=== PATIENT | male | born 1985 | race Caucasian/White ===

== ENCOUNTER → 2017-09-02 | Outpatient (CLI) | payer BC ==
[~2017-09-02] MED LIST: NAPR-1169 PO; NEOM1SUS21 OP; PRED10TA PO
[2017-09-02 17:36] LABS: BASO % 1.2 %; BASO ABS # 0.06 K/uL (0-0.2); EOS % 5.5 %; EOS ABS # 0.28 K/uL (0-0.5); HEMATOCRIT 43.4 % (42-52); HEMOGLOBIN 15.1 g/dL (14.0-18.0); LYMPH % 31.9 %; LYMPH ABS # 1.62 K/uL (1.2-3.4); MEAN CORPUSCULAR HEMOGLOBIN 28.9 pg (25-34); MEAN CORPUSCULAR HGB CONC 34.8 g/dl (32-36); MEAN PLATELET VOLUME 10.1 fL (7.4-10.4); MONO % 13.6 %; MONO ABS # 0.69 K/uL (0.11-0.59); NEUT % 47.8 %; NEUT ABS # 2.43 K/uL (1.4-6.5); PLATELET COUNT 206 K/uL (130-400); RED CELL DISTRIBUTION WIDTH CV 14.1 % (11.5-14.5); RED CELL DISTRIBUTION WIDTH SD 42.9 fL (36.4-46.3); WHITE BLOOD COUNT 5.08 K/uL (4.8-10.8)
[2017-09-02 18:12] LABS: BLOOD UREA NITROGEN 11 mg/dl (7-18); CALCIUM 9.4 mg/dl (8.5-10.1); CARBON DIOXIDE 27 mmol/L (21-32); CREATININE 0.92 mg/dl (0.60-1.40); GLUCOSE 89 mg/dl (70-99); POTASSIUM 3.9 mmol/L (3.5-5.1); SODIUM 138 mmol/L (136-145)
[2017-09-02 18:23] LABS: CHOLESTEROL 140 mg/dl (0-200); LDL CHOLESTEROL CALCULATED 64 mg/dl
== END | disposition home or self-care (01) ==
LOC: C.LABPVFM 13:44
PROVIDERS: ATTEND Nurse Practitioner Family
DX: R07.9 Chest pain, unspecified (principal)

== ENCOUNTER → 2017-09-09 | Outpatient (CLI) | payer BC ==
--- NOTE | 2017-09-09 11:19 | DIAGNOSTIC IMAGING REPORT ---
CHEST 2 VIEWS ROUTINE HISTORY: 31 years-old Male CHEST PAIN acute atypical chest pain COMPARISON: Chest radiograph 05/28/2007, CT chest 02/02/2011 TECHNIQUE: PA and lateral views of the chest FINDINGS: The patient is slightly rotated to the right. There is no pneumothorax, pleural effusion, focal airspace consolidation or overt pulmonary edema. Bones of the chest appear grossly intact. Mild focal levoscoliosis of the upper thoracic spine centered at the T4-T5 level. There is a 4 mm nodular ovoid density projecting over the lower left chest suggesting nipple shadow. IMPRESSION: No acute process. The above report was generated using voice recognition software. It may contain grammatical, syntax or spelling errors. Electronically signed by: Craig Diggs M.D. 09/09/2017 11:18 AM Dictated Date/Time: 09/09/2017 11:16 AM
== END | disposition home or self-care (01) ==
LOC: C.RADPV 11:04
PROVIDERS: ATTEND Nurse Practitioner Family
DX: R07.9 Chest pain, unspecified (principal); Q67.7 Pectus carinatum

== ENCOUNTER 2017-09-10 18:41 | Emergency (ER) | payer BC ==
[~2017-09-10] VITALS: Ht 182.9 cm; Wt 73.8 kg
[~2017-09-10 18:41] MED LIST changes: -NAPR-1169 PO; -PRED10TA PO
[2017-09-10 18:45] VITALS: TEMP 36.3; Ht 182.9 cm; Wt 73.8 kg
[2017-09-10] MEDS ORDERED: OPTIRAY 320 IV PRN (19:15)
[2017-09-10 19:24] LABS: BASO % 0.1 %; BASO ABS # 0.01 K/uL (0-0.2); HEMATOCRIT 44.1 % (42-52); HEMOGLOBIN 15.7 g/dL (14.0-18.0); IG# 0.02 K/uL (0.00-0.02); LYMPH % 4.7 %; LYMPH ABS # 0.75 K/uL (1.2-3.4); MEAN CELL VOLUME 82.6 fL (80-100); MEAN CORPUSCULAR HEMOGLOBIN 29.4 pg (25-34); MEAN CORPUSCULAR HGB CONC 35.6 g/dl (32-36); MEAN PLATELET VOLUME 9.5 fL (7.4-10.4); MONO % 0.6 %; NEUT % 94.5 %; NEUT ABS # 14.94 K/uL (1.4-6.5); PLATELET COUNT 244 K/uL (130-400); RED CELL DISTRIBUTION WIDTH CV 14.1 % (11.5-14.5); RED CELL DISTRIBUTION WIDTH SD 42.2 fL (36.4-46.3); WHITE BLOOD COUNT 15.82 K/uL (4.8-10.8)
[2017-09-10 19:32] LABS: PTT PATIENT 24.5 SECONDS (21.0-31.0)
[2017-09-10 19:41] LABS: ALBUMIN 4.1 gm/dl (3.4-5.0); ALT/SGPT 22 U/L (12-78); BLOOD UREA NITROGEN 15 mg/dl (7-18); CALCIUM 9.5 mg/dl (8.5-10.1); CARBON DIOXIDE 27 mmol/L (21-32); CREATININE 0.88 mg/dl (0.60-1.40); GLUCOSE 125 mg/dl (70-99); LIPASE 118 U/L (73-393); POTASSIUM 3.9 mmol/L (3.5-5.1); SODIUM 138 mmol/L (136-145)
[2017-09-10 19:46] LABS: ALKALINE PHOSPHATASE 69 U/L (45-117); AST/SGOT 14 U/L (15-37)
[2017-09-10] MEDS ORDERED: NAPR-1169 PO (19:47)
[2017-09-10] MEDS ORDERED: PRED10TA PO (19:47)
--- NOTE | 2017-09-10 20:35 | DIAGNOSTIC IMAGING REPORT ---
(CHEST FOR PE) ANGIO WITH CT DOSE: 291.21 mGy.cm HISTORY: 31 years-old Male presents with acute atypical chest pain and shortness of breath TECHNIQUE: Multiple CTA images of the chest were obtained after the intravenous administration of 91 ml Optiray 320. Coronal and sagittal MIPS were obtained from the axial data set and were submitted for review. A dose lowering technique was utilized adhering to the principles of ALARA. COMPARISON: Chest radiograph 09/09/2017, chest CT 02/02/2011. FINDINGS: CTA: Heart is normal in size without pericardial effusion. The thoracic aorta is normal in both course and caliber without aneurysm or dissection. The imaged great vessels appear to be patent. The pulmonary arterial tree is opacified to the level of the subsegmental branches and demonstrates no focal filling defect to suggest pulmonary thromboembolic disease. CT CHEST: Minimal soft tissue with ill-defined margins of the anterior mediastinum suggests residual thymic tissue. Symmetric mild bilateral gynecomastia. No pathologic adenopathy about the chest identified. There is no pneumothorax or pleural effusion. Minimal dependent subsegmental bibasilar atelectasis. No suspicious pulmonary nodules or masses identified. No lobar airspace consolidation to suggest pneumonia. The central airways appear patent. There is minimal bronchial wall thickening noted bilaterally, greatest at the level of the right lung base. No acute abnormality of the imaged upper abdomen. Pectus carinatum deformity of the chest. Bones appear intact. Levoscoliosis of the midthoracic spine. IMPRESSION: 1. No acute aortic pathology or evidence of pulmonary thromboembolic disease. 2. No lobar airspace consolidation or adenopathy. 3. Minimal bilateral bronchial wall thickening, greatest at the level the right lung base may reflect bronchitis in the appropriate clinical setting. 4. Levoscoliosis of the midthoracic spine with pectus carinatum deformity of the chest. The above report was generated using voice recognition software. It may contain grammatical, syntax or spelling errors. Electronically signed by: Craig Diggs M.D. 09/10/2017 8:33 PM Dictated Date/Time: 09/10/2017 8:28 PM
--- NOTE | 2017-09-10 20:55 | EMERGENCY ROOM VISIT NOTE ---
History Report prepared by Armen: Cal Frederick Under the Supervision of: Dr. Will Iraheta D.O. First contact with patient: 18:51 Chief Complaint: CHEST PAIN Stated Complaint: CHEST PAINS, SOB, SEEN DR YESTERDAY, History of Present Illness The patient is a 31 year old male who presents to the Emergency Room with complaints of persistent chest pain that started last week. He states that the pain started when he was at work, but was not doing anything exceptionally exertional at that time. The patient describes his pain as sharp, and says that the pain changes position around his chest every couple minutes. He adds that he has been short of breath as well. He states that he was seen by his family doctor yesterday, and had blood work done as well as an x-ray. The patient was told that he is going to need chest surgery, and he is to see a specialist soon. He states that he is not completely sure what the problem is. Source of History: patient Onset: Last week Position: chest Symptom Intensity: notes needs surgery due to problem Quality: sharp Timing: other (persistent) Associated Symptoms: + SOB Note: No other associated symptoms noted. Review of Systems See HPI for pertinent positives & negatives. A total of 10 systems reviewed and were otherwise negative. Family History Cancer Heart disease Hypertension Social History Smoking Status: Current Every Day Smoker Alcohol Use: none Drug Use: none Occupation Status: employed Current/Historical Medications Scheduled Prednisone Tab (Prednisone), 10 MG PO UD Scheduled PRN Naproxen (Naprosyn), 500 MG PO Q12 PRN for Pain Allergies Coded Allergies: Fentanyl (Verified Allergy, Unknown, Unknown, 09/10/17) Nitrous Oxide (Verified Allergy, Unknown, Unknown, 09/10/17) Physical Exam Vital Signs Date Time Temp Pulse Resp B/P (MAP) Pulse Ox O2 Delivery O2 Flow Rate FiO2 09/10/17 19:50 70 16 126/71 97 Room Air 09/10/17 19:23 Room Air 09/10/17 18:57 87 09/10/17 18:45 36.3 90 18 142/84 98 Room Air Physical Exam CONSTITUTIONAL/VITAL SIGNS: Reviewed / noted above. GENERAL: Non-toxic in appearance. INTEGUMENTARY: Warm, dry, and [place]. HEAD: Normocephalic. EYES: without scleral icterus or trauma. ENT/OROPHARYNX: clear and moist. LYMPHADENOPATHY/NECK: Is supple without lymphadenopathy or meningismus. RESPIRATORY: Lungs clear and equal. CARDIOVASCULAR: Regular rate and rhythm. GI/ABDOMEN: Soft and nontender. No organomegaly or pulsatile mass. No rebound or guarding. Normal bowel sounds. EXTREMITIES: Warm and well perfused. BACK: No CVA tenderness. NEUROLOGICAL: Intact without focal deficits. PSYCHIATRIC: normal affect. MUSCULOSKELETAL: Patient has pectus carinatum. Medical Decision & Procedures ER Provider Diagnostic Interpretation: CT results as stated below per my review and radiologist interpretation: (CHEST FOR PE) ANGIO WITH CT DOSE: 291.21 mGy.cm HISTORY: 31 years-old Male presents with acute atypical chest pain and shortness of breath TECHNIQUE: Multiple CTA images of the chest were obtained after the intravenous administration of 91 ml Optiray 320. Coronal and sagittal MIPS were obtained from the axial data set and were submitted for review. A dose lowering technique was utilized adhering to the principles of ALARA. COMPARISON: Chest radiograph 09/09/2017, chest CT 02/02/2011. FINDINGS: CTA: Heart is normal in size without pericardial effusion. The thoracic aorta is normal in both course and caliber without aneurysm or dissection. The imaged great vessels appear to be patent. The pulmonary arterial tree is opacified to the level of the subsegmental branches and demonstrates no focal filling defect to suggest pulmonary thromboembolic disease. CT CHEST: Minimal soft tissue with ill-defined margins of the anterior mediastinum suggests residual thymic tissue. Symmetric mild bilateral gynecomastia. No pathologic adenopathy about the chest identified. There is no pneumothorax or pleural effusion. Minimal dependent subsegmental bibasilar atelectasis. No suspicious pulmonary nodules or masses identified. No lobar airspace consolidation to suggest pneumonia. The central airways appear patent. There is minimal bronchial wall thickening noted bilaterally, greatest at the level of the right lung base. No acute abnormality of the imaged upper abdomen. Pectus carinatum deformity of the chest. Bones appear intact. Levoscoliosis of the midthoracic spine. IMPRESSION: 1. No acute aortic pathology or evidence of pulmonary thromboembolic disease. 2. No lobar airspace consolidation or adenopathy. 3. Minimal bilateral bronchial wall thickening, greatest at the level the right lung base may reflect bronchitis in the appropriate clinical setting. 4. Levoscoliosis of the midthoracic spine with pectus carinatum deformity of the chest. The above report was generated using voice recognition software. It may contain grammatical, syntax or spelling errors. Electronically signed by: Craig Diggs M.D. 09/10/2017 8:33 PM Dictated Date/Time: 09/10/2017 8:28 PM Laboratory Results 09/10/17 19:05 Red Blood Count 5.34, Mean Corpuscular Volume 82.6, Mean Corpuscular Hemoglobin 29.4, Mean Corpuscular Hemoglobin Concent 35.6, Mean Platelet Volume 9.5, Neutrophils (%) (Auto) 94.5, Lymphocytes (%) (Auto) 4.7, Monocytes (%) (Auto) 0.6, Eosinophils (%) (Auto) 0.0, Basophils (%) (Auto) 0.1, Neutrophils # (Auto) 14.94, Lymphocytes # (Auto) 0.75, Monocytes # (Auto) 0.10, Eosinophils # (Auto) 0.00, Basophils # (Auto) 0.01 09/10/17 19:05 Test 09/10/17 19:05 White Blood Count 15.82 K/uL (4.8-10.8) Red Blood Count 5.34 M/uL (4.7-6.1) Hemoglobin 15.7 g/dL (14.0-18.0) Hematocrit 44.1 % (42-52) Mean Corpuscular Volume 82.6 fL (80-100) Mean Corpuscular Hemoglobin 29.4 pg (25-34) Mean Corpuscular Hemoglobin Concent 35.6 g/dl (32-36) Platelet Count 244 K/uL (130-400) Mean Platelet Volume 9.5 fL (7.4-10.4) Neutrophils (%) (Auto) 94.5 % Lymphocytes (%) (Auto) 4.7 % Monocytes (%) (Auto) 0.6 % Eosinophils (%) (Auto) 0.0 % Basophils (%) (Auto) 0.1 % Neutrophils # (Auto) 14.94 K/uL (1.4-6.5) Lymphocytes # (Auto) 0.75 K/uL (1.2-3.4) Monocytes # (Auto) 0.10 K/uL (0.11-0.59) Eosinophils # (Auto) 0.00 K/uL (0-0.5) Basophils # (Auto) 0.01 K/uL (0-0.2) RDW Standard Deviation 42.2 fL (36.4-46.3) RDW Coefficient of Variation 14.1 % (11.5-14.5) Immature Granulocyte % (Auto) 0.1 % Immature Granulocyte # (Auto) 0.02 K/uL (0.00-0.02) Prothrombin Time 10.3 SECONDS (9.0-12.0) Prothromb Time International Ratio 1.0 (0.9-1.1) Activated Partial Thromboplast Time 24.5 SECONDS (21.0-31.0) Partial Thromboplastin Ratio 0.9 Anion Gap 7.0 mmol/L (3-11) Est Creatinine Clear Calc Drug Dose 129.3 ml/min Estimated GFR () 134.5 Estimated GFR (Non- 116.1 BUN/Creatinine Ratio 16.4 (10-20) Calcium Level 9.5 mg/dl (8.5-10.1) Total Bilirubin 0.4 mg/dl (0.2-1) Direct Bilirubin < 0.1 mg/dl (0-0.2) Aspartate Amino Transf (AST/SGOT) 14 U/L (15-37) Alanine Aminotransferase (ALT/SGPT) 22 U/L (12-78) Alkaline Phosphatase 69 U/L (45-117) Total Creatine Kinase 85 U/L (39-308) Creatine Kinase MB 1.0 ng/ml (0.5-3.6) Creatine Kinase MB Ratio 1.2 (0-3.0) Troponin I < 0.015 ng/ml (0-0.045) Total Protein 8.0 gm/dl (6.4-8.2) Albumin 4.1 gm/dl (3.4-5.0) Lipase 118 U/L (73-393) Laboratory results as stated above per my review. ECG Per My Interpretation Indication: chest pain Rate (beats per minute): 61 Rhythm: normal sinus Findings: no ectopy, other (no ST elevations) ED Course 1852: Previous medical records were reviewed. The patient was evaluated in room B6. A complete history and physical examination was performed. 2054: On reevaluation, the patient is resting comfortably. I discussed the results and findings with the patient. He verbalized agreement of the treatment plan. He was discharged home. Medical Decision The differential was considered includes acute myocardial infarction, acute coronary syndrome, myocarditis, pericarditis, pericardial effusions/tamponade, esophageal perforation, thoracic aortic dissection, pulmonary embolism, pneumonia, pneumothorax, pancreatitis, shingles, acute cholecystitis, perforated abdominal viscus. This is a 31-year-old male who presents to the ED with a chief complaint of chest pain. The patient reports sharp pains in his chest that change in location every couple of minutes. He states that this is been going on for the last week. He saw his PCP yesterday and had a chest x-ray done. He also reported that blood work was done prior to this. He states that it originally started when he shifted while he was working. He denies any other significant symptoms. Denies fevers, shortness of breath, recent illness or trauma. His vital signs are stable. His physical exam reveals pectus carinatum. Exam is otherwise unremarkable. CT scan of the chest did not show acute abnormality. EKG showed normal sinus rhythm. Blood cell count was 15. Complete metabolic panel was unremarkable, troponin was negative. The patient was told the results of the test. He was felt to be stable for discharge. Told to follow- up with PCP. Medication Reconcilliation Current Medication List: was personally reviewed by me Blood Pressure Screening Patient's blood pressure: Elevated blood pressure Blood pressure disposition: Elevated BP felt to be situational Impression Primary Impression: Chest wall pain Scribe Attestation The scribe's documentation has been prepared under my direction and personally reviewed by me in its entirety. I confirm that the note above accurately reflects all work, treatment, procedures, and medical decision making performed by me. Departure Information Dispostion Home / Self-Care Referrals Priscilla Mike (PCP) Patient Instructions Chest Pain - [facility], [facility] Additional Instructions Follow-up with your doctor for further care and evaluation in 1-2 days. Return to the emergency department for worsening or new symptoms or any concerns. You have been examined and treated today on an emergency basis only. This is not a substitute for, or an effort to provide, complete comprehensive medical care. It is impossible to recognize and treat all injuries or illnesses in a single emergency department visit. It is therefore important that you follow up closely with your doctor. Call as soon as possible for an appointment.
[2017-09-10 21:25] VITALS: BP 104/73; PULSE 76; O2SAT 98
== END 2017-09-10 21:42 | disposition home or self-care (01) ==
LOC: C.EDB 18:43
DX: R07.89 Other chest pain (principal); F17.210 Nicotine dependence, cigarettes, uncomplicated; Z80.9 Family history of malignant neoplasm, unspecified; Z82.49 Family history of ischemic heart disease and other diseases of the circulatory system; Z88.8 Allergy status to other drugs, medicaments and biological substances

== ENCOUNTER → 2017-10-19 | Outpatient (CLI) | payer BC ==
[~2017-10-19] MED LIST changes: +NAPR-1169 PO; -NEOM1SUS21 OP; +PRED10TA PO
[2017-10-19 17:35] LABS: BASO % 0.8 %; BASO ABS # 0.04 K/uL (0-0.2); EOS % 2.7 %; EOS ABS # 0.13 K/uL (0-0.5); HEMATOCRIT 43.9 % (42-52); HEMOGLOBIN 15.4 g/dL (14.0-18.0); IG# 0.01 K/uL (0.00-0.02); LYMPH % 42.4 %; LYMPH ABS # 2.05 K/uL (1.2-3.4); MEAN CELL VOLUME 82.7 fL (80-100); MEAN CORPUSCULAR HGB CONC 35.1 g/dl (32-36); MEAN PLATELET VOLUME 10.3 fL (7.4-10.4); MONO % 9.7 %; MONO ABS # 0.47 K/uL (0.11-0.59); NEUT % 44.2 %; NEUT ABS # 2.14 K/uL (1.4-6.5); PLATELET COUNT 217 K/uL (130-400); RED CELL DISTRIBUTION WIDTH CV 13.7 % (11.5-14.5); RED CELL DISTRIBUTION WIDTH SD 41.2 fL (36.4-46.3); WHITE BLOOD COUNT 4.84 K/uL (4.8-10.8)
== END | disposition home or self-care (01) ==
LOC: C.LABPVFM 15:09
PROVIDERS: ATTEND Nurse Practitioner Family
DX: D72.829 Elevated white blood cell count, unspecified (principal)